=== PATIENT | female | born 1950 | race American Indian/Alaskan Native ===

== ENCOUNTER 2018-12-05 05:55 | Day surgery (SDC) | payer OTHER ==
[2018-12-05] MEDS ORDERED: NACL 0.9% 500 ML 500 ML IV SCH (07:00)
[2018-12-05 07:08] LABS: INR 1.17 (0.87-1.13)
[2018-12-05] MEDS ORDERED: HEPARIN/NS 5000 UNIT/500ML(CATH LAB) 1,000 ML IR ONE (08:17)
[2018-12-05] MEDS ORDERED: HEPARIN 10,000 UNITS/10 ML ONE (08:17)
[2018-12-05] MEDS ORDERED: NITROGLYCERIN SYRINGE 3 ML ONE (08:18)
[2018-12-05] MEDS ORDERED: VERSED ONE (08:18)
[2018-12-05] MEDS ORDERED: CALAN ONE (08:18)
[2018-12-05] MEDS ORDERED: SUBLIMAZE ONE (08:19)
[2018-12-05] MEDS: XYLOCAINE 2% INFILTRATI ONE ×2 (08:51→08:54)
--- NOTE | 2018-12-05 09:58 | Cardiac Catherization Report ---
CARDIAC CATHETERIZATION REFERRING PHYSICIAN: Addi Archuleta MD INDICATION FOR PROCEDURE: The patient is an exceedingly pleasant 68-year-old female who is found to have severe mitral regurgitation, which is symptomatic. She is referred for right and left heart cath for possible pre-valvular surgery. Risks, benefits, alternatives discussed at length prior to obtaining informed consent. PROCEDURE IN DETAIL: The patient was brought to the clinical lab specialist in a postabsorptive state, prepped and draped in sterile fashion. Nayan's test in right hand was normal. A 2 mL of 2% lidocaine used to anesthetize the right wrist. A standard 6-Lao hydrophilic sheath used to cannulate the right radial artery via modified Seldinger technique. All exchanges performed to exchange a J-tip guidewire. A standard 7-Lao sheath placed in the right femoral vein via modified Seldinger technique. We first performed a right heart cath with a 4-Lao balloon tip [place] catheter. Pulmonary wedge catheter position was obtained, pressure was obtained. Thereafter, PA, RV, RA, IVC and SVC pressures and sats were obtained. Then, the catheter was removed from the body over a wire. Next, we turned our attention to the left heart. A standard JL4 catheter used to engage the left main. No dampening or ventricularization. Cineangiography performed in all projections. Next, a JR4 catheter used to engage the right coronary. No dampening or ventricularization. Cineangiography performed in multiple projections. Next, a 6-Lao angled pigtail catheter placed across the aortic valve under fluoroscopic guidance. Left ventriculography performed in 30 OGDEN position with a power injector. Next, catheter flushed. Manual pullback performed with continuous pressure monitoring. Catheter is used for a root aortogram in the CRISTIN projection with a power injector. Next, catheter removed from the body over a wire, sheaths removed. Manual pressure used to achieve hemostasis. No immediate complications identified. I directly supervised the administration of moderate sedation from 8:40 to 9:20 a.m. Fentanyl and Versed were used. INTERPRETATION DATA: Aortic pressure is 120/60, LV pressure is 120, LVEDP of 12 mmHg. Left ventriculography reveals normal systolic performance with estimated ejection fraction of 55% to 60%. There is 3-4+ MR identified. Root aortogram reveals normal caliber and contour root, normal great vessel anatomy, no evidence of aortic insufficiency. No evidence of aortic dissection or penetrating aortic ulcer. Pulmonary capillary wedge pressure is a mean of 7. Pulmonary arterial pressure is 38 with a mean of 29, RA pressure is 10, RV is 40, RVEDP of 10. Cardiac output is 4.8. Cardiac index is 2.6. CORONARY ANATOMY: This is strongly right dominant system. Right coronary is a large vessel, courses AV groove, distally bifurcates into posterior and posterolateral branch. There are no discrete stenosis identified. Left main is a short vessel with no significant disease, bifurcates into left anterior descending and left circumflex. Left circumflex is a moderate sized vessel, gives off an OM trunk. No significant disease. LAD is a moderate sized vessel, courses anterior intergroove, wraps around the apex. Mild scattered luminal irregularities with a maximal narrowing of approximately 20% in the mid segment, but no obstructive disease identified in the LAD or diagonal system. CONCLUSIONS: 1. No angiographic evidence of significant obstructive coronary disease in this right dominant system. 2. Normal left ventricular systolic performance with estimated ejection fraction of 55% to 60%. 3. 3-4+ mitral regurgitation. 4. No evidence of aortic stenosis or aortic regurgitation. 5. Root aortography reveals normal contour, no evidence of dissection, penetrating aortic ulcer, or aortic insufficiency. 6. Right heart pressures are very minimally elevated. 7. Normal cardiac output/index. At this point, the results of procedure explained to the patient and family. All questions and concerns were addressed. She has isolated severe mitral regurgitation. Discussed with Dr. Archuleta, referring water project engineer. Standard groin and radial care. Resume systemic anticoagulation for atrial fibrillation. JOB# [id number] SBM/NTS
[2018-12-05 13:49] VITALS: BP 113/68
--- NOTE | 2018-12-08 12:07 | Short Stay Summary ---
Short Stay Documentation Date of service: 12/05/18 - History H&P: obtained from office - Allergies and Medications Current Medications: Allergies Sulfa (Sulfonamide Antibiotics) Allergy (Severe, Verified 12/05/18 06:36) Shortness of Breath aspirin Adverse Reaction (Intermediate, Verified 12/05/18 06:36) PAIN IN RIGHT SIDE codeine Adverse Reaction (Intermediate, Verified 12/05/18 06:36) HEADACHES Penicillins Adverse Reaction (Mild, Verified 12/05/18 06:36) Itching Home Medications Medication Instructions Recorded Confirmed Last Taken Type ALBUTEROL Inhaler (OR & NICU) 1 puff INHALATION PRN PRN 12/05/18 12/05/18 History [ProAir HFA Inhaler] 1 puff Budesonide/Formoterol Fumarate 1 puff INHALATION PRN PRN 12/05/18 12/05/18 11/18/18 History [Symbicort 160-4.5 Mcg Inhaler] 1 puff Diltiazem HCl [Diltiazem 12Hr ER] 120 mg PO BID 12/05/18 12/05/18 12/04/18 History 120mg Duloxetine HCl [DULoxetine] 30 mg PO DAILY 12/05/18 12/05/18 12/04/18 History 30mg Ergocalciferol [Vitamin D2] 1 cap PO QWEEK 12/05/18 12/05/18 12/04/18 History 1 cap Estradiol 2 mg PO DAILY 12/05/18 12/05/18 12/04/18 History 5mg Gabapentin [Neurontin] 1 tab PO TID 12/05/18 12/05/18 12/04/18 History 1 cap Hydroxychloroquine [Plaquenil] 200 mg PO DAILY 12/05/18 12/05/18 12/04/18 History 200mg Lidocaine 1 applicatio TRANSDERMA TID 12/05/18 12/05/18 12/03/18 History 1 appilcation Oxybutynin Chloride [Oxybutynin 5 mg PO DAILY 12/05/18 12/05/18 12/04/18 History Chloride ER] 5mg Warfarin [Coumadin] 5 mg PO 5XW 12/05/18 12/05/18 12/01/18 History 5mg Warfarin [Coumadin] 7 mg PO 2XW 12/05/18 12/05/1811/28/19 History 7mg predniSONE [Deltasone] 5 mg PO DAILY 12/05/18 12/05/18 12/04/18 History 5mg - Brief post op/procedure progress note Date of procedure: 12/05/18 Pre-op diagnosis: MR Post-op diagnosis: same Procedure: [facility] - see dictated cath report Anesthesia: local Estimated blood loss: none Condition: stable - Disposition Condition at discharge: Good Disposition: DC-01 TO HOME OR SELFCARE - Discharge Diagnoses (1) Severe mitral regurgitation Status: Chronic Short Stay Discharge Plan Activity: advance as tolerated Wound: open to air, keep clean and dry, per your surgeon's advice Follow up with: RENU POWELL JR, MD [Primary Care Provider] - 7 Days Forms: CardCat PCI D/C Instructions
== END 2018-12-05 15:37 | disposition home or self-care (01) ==
LOC: CATHLABREC 05:55
PROVIDERS: ATTEND Internal Medicine
DX: I34.0 Nonrheumatic mitral (valve) insufficiency (principal); I48.91 Unspecified atrial fibrillation; J45.909 Unspecified asthma, uncomplicated; M19.90 Unspecified osteoarthritis, unspecified site; M06.9 Rheumatoid arthritis, unspecified; F32.9 Major depressive disorder, single episode, unspecified; Z88.2 Allergy status to sulfonamides; Z88.0 Allergy status to penicillin; Z88.6 Allergy status to analgesic agent; Z88.5 Allergy status to narcotic agent; Z79.899 Other long term (current) drug therapy; Z79.01 Long term (current) use of anticoagulants; Z98.49 Cataract extraction status, unspecified eye; Z90.710 Acquired absence of both cervix and uterus; Z98.890 Other specified postprocedural states; Z82.49 Family history of ischemic heart disease and other diseases of the circulatory system; Z82.5 Family history of asthma and other chronic lower respiratory diseases
CPT/HCPCS: 36415; 85610; 85730; 93005; 93010; 93460; 93567; 99156; 99157; C1894; J1644; J2250; J3010; J7040; Q9967